=== PATIENT | male | born 1970 | race Caucasian/White ===

== ENCOUNTER 2019-04-10 15:54 | Inpatient (IN) | payer OTHER ==
[2019-04-10] MEDS ORDERED: Ketorolac 30 MG/ML SDV IVPUSH PRN (16:13)
[2019-04-10] MEDS: Sodium Chloride 0.9% 1,000 ML IV SCH (16:59)
[2019-04-10] MEDS: ceFAZolin 1 GM Vial IVPUSH SCH (17:26)
[2019-04-10] MEDS: metroNIDAZOLE/Normal Saline 500 MG in Premix Bag 1 BAG IV SCH (18:23)
--- NOTE | 2019-04-10 22:22 | PCM.SN ---
- Free Text/Narrative Note: Copy of 04/10/19 clinic note to be used as patient's admission H&P: Assessment / Plan Acute calculous cholecystitis Right upper quadrant abdominal pain Due to differential diagnosis favoring gallbladder/biliary tract pathology, labs and US obtained. US showed evidence of acute calculous cholecystitis. Only abnormalities on CBC/CMP/lipase/ESR include WBC 11.2 with 9.7 segs. Discussed withRebecca Horvath MD,and will admit the patient to [facility] for IVF (NS @ 125cc/hr), IV antibiotics (cefazolin 2g q8h and metronidazole 500mg q8h), and laparoscopic cholecystectomy. Low fat diet until midnight when starting NPO status anticipating surgery in AM. - COMPLETE BLOOD COUNT WITH DIFFERENTIAL; Future - COMPREHENSIVE METABOLIC PANEL; Future - ESR; Future - LIPASE; Future - US ABDOMEN LIMITED; Future Obesity with body mass index of 30.0-39.9 BMI 30.Diet and lifestyle modifications were discussed with the patient and a follow up plan is in place. Return following hospitalization. HPI / History / ROS Amberly Rosario is a 48yr male with a chief complaint ofAbdominal Pain (Middle). Awoke at 0300 with right-mid upper abdominal pain. Characterdescribed asdull numbing pain with some sharp stabs at time. Pain is constant, but has some episodes of worsening especially with movement. Difficulty taking deep breath due to pain in abdomen. Took ibuprofen 400mg and a nausea medication without any improvement. Decreased appetite, but did have breakfast of oats which made the pain worse. Denies similar pain in the past. Denies any change in diet or activity. About a month ago, had several days of diarrhea and fevers, which resolved. ROS Review of Systems Constitutional: Positive forappetite changeand fever(subjective). Negative foractivity change,chillsand fatigue. HENT: Negative forear discharge,ear pain,sore throatand trouble swallowing. Eyes: Negative forpain,rednessand visual disturbance. Respiratory: Negative forcough,chest tightnessand shortness of breath. Cardiovascular: Negative forchest pain,palpitationsand leg swelling. Gastrointestinal: Negative foranal bleeding,blood in stool,constipation, diarrhea,nauseaand vomiting. Endocrine: Negative forpolydipsia,polyphagiaand polyuria. Genitourinary: Negative fordifficulty urinating,dysuriaand hematuria. Musculoskeletal: Positive forback pain(occasional low back pain bilaterally associated with increased lifting). Negative forarthralgiasand joint swelling. Skin: Negative forcolor change,rashand wound. Allergic/Immunologic: Negative forenvironmental allergies,food allergiesand immunocompromised state. Neurological: Negative fordizziness,light-headednessand headaches. Psychiatric/Behavioral: Negative fordysphoric moodand sleep disturbance. The patientis not nervous/anxious. Histories w PastMedicalHistory w History reviewed. No pertinent past medical history. w PastSurgicalHistory w History reviewed. No pertinent surgical history. w FamilyHistory w Family History Problem Relation Age of Onset Cervical Cancer Mother No Known Problems Father No Known Problems Daughter No Known Problems Son No Known Problems Daughter w SocialHistory w Social History Socioeconomic History Marital status: Spouse name: Richa Number of children: 2 Years of education: Not on file Highest education level: Not on file Occupational History Not on file Social Needs Financial resource strain: Not on file Food insecurity: Worry: Not on file Inability: Not on file Transportation needs: Medical: Not on file Non-medical: Not on file Tobacco Use Smoking status: Former Smoker Packs/day: 0.75 Types: Cigarettes Smokeless tobacco: Never Used Substance and Sexual Activity Alcohol use: Not Currently Drug use: Never Sexual activity: Not on file Lifestyle Physical activity: Days per week: Not on file Minutes per session: Not on file Stress: Not on file Relationships Social connections: Talks on phone: Not on file Gets together: Not on file Attends temple service: Not on file Active member of club or organization: Not on file Attends meetings of clubs or organizations: Not on file Relationship status: Not on file Intimate partner violence: Fear of current or ex partner: Not on file Emotionally abused: Not on file Physically abused: Not on file Forced sexual activity: Not on file Other Topics Concern Not on file Social History Narrative Not on file w w w Patient Active Problem List l Diagnosis w w Obesity with body mass index of 30.0-39.9 Medicationsand Allergies w w w w w w Current Outpatient Medications on File Prior to Visit l Medication l Sig l Dispense l Refill w w B Complex Vitamins (VITAMIN B COMPLEX) capsule w Take 1 capsule by mouth 1 time per day w w w w vitamin C, ascorbic acid, 250 MG tablet w Take 250 mg by mouth 1 time per day w w w No current facility-administered medications on file prior to visit. No Known Allergies Physical / Results BP 132/82 Pulse 64 Temp 99 F (37.2 C) (Temporal) Resp 16 Ht 1.846 m (6' 0.68") Wt 102.3 kg (225 lb 9.6 oz) BMI 30.03 kg/m2|| Physical Exam Constitutional: He appearswell-developedand well-nourished.No distress. HENT: Head:Normocephalicand atraumatic. Right Ear:External earnormal. Left Ear: External earnormal. Nose:Nose normal. Mouth/Throat:Oropharynx is clear and moist. Nooropharyngeal exudate. Eyes:Conjunctivaeare normal. Right eye exhibits no discharge. Left eye exhibitsno discharge. Neck:Neck supple.No thyromegalypresent. Cardiovascular:Normal rate,regular rhythm,normal heart soundsand intact distal pulses. No murmurheard. Pulmonary/Chest:Effort normaland breath sounds normal. Norespiratory distress. He hasno wheezes. He hasno rales. Abdominal:Soft.Bowel sounds are normal. He exhibitsno distensionand no mass. There istenderness(RUQ with positive Hurtado sign). There isno rebound and no guarding. Musculoskeletal:Normal range of motion. He exhibits noedema. Lymphadenopathy: He has no cervical adenopathy. Neurological: He isalert. Skin: Skin iswarmand dry.No rashnoted. Psychiatric: He has anormal mood and affect.
[2019-04-11] MEDS: ceFAZolin 1 GM Vial IVPUSH SCH ×3 (00:57→17:40)
[2019-04-11] MEDS: Sodium Chloride 0.9% 1,000 ML IV SCH (00:59)
[2019-04-11] MEDS: metroNIDAZOLE/Normal Saline 500 MG in Premix Bag 1 BAG IV SCH ×2 (02:00→11:46)
[2019-04-11] MEDS ORDERED: Propofol 200 MG/20 ML SDV ONE (06:29)
[2019-04-11] MEDS ORDERED: Dexamethasone 4 MG/ML SDV ONE (06:29)
[2019-04-11] MEDS ORDERED: Midazolam 1 MG/ML 2 ML SDV ONE (06:29)
[2019-04-11] MEDS ORDERED: fentaNYL 250 MCG/5 ML SDV ONE (06:29)
[2019-04-11] MEDS ORDERED: ceFAZolin 1 GM Vial ONE ×3 (06:29→08:42)
[2019-04-11] MEDS ORDERED: Ketorolac 30 MG/ML SDV ONE (06:30)
[2019-04-11] MEDS ORDERED: Lactated Ringers 1,000 ML ONE ×2 (06:30→07:19)
[2019-04-11] MEDS ORDERED: Bupivacaine 0.5%/EPINEPHrine 1:200,000 30 ML SDV ONE ×2 (06:32→09:39)
[2019-04-11] MEDS ORDERED: Lactated Ringers 1,000 ML IV SCH (07:00)
[2019-04-11 07:51] LABS: ANION GAP 13.2 mmol/L (5-15); CHLORIDE,CL 108 mmol/L (98-115); SODIUM,NA 142 mmol/L (136-145)
[2019-04-11] MEDS ORDERED: EPINEPHrine 1:10,000 1 MG/10 ML Syringe ONE ×2 (08:04→09:00)
[2019-04-11] MEDS ORDERED: Propofol 200 MG/20 ML SDV IV ONE (08:23)
[2019-04-11] MEDS ORDERED: Succinylcholine 200 MG/10 ML MDV IV ONE (08:23)
[2019-04-11] MEDS ORDERED: Dexamethasone 4 MG/ML SDV IV ONE (08:23)
[2019-04-11] MEDS ORDERED: Rocuronium 50 MG/5 ML Vial IV ONE (08:23)
[2019-04-11] MEDS ORDERED: ceFAZolin 1 GM Vial IV ONE (08:23)
[2019-04-11] MEDS ORDERED: Midazolam 1 MG/ML 2 ML SDV IV ONE (08:23)
[2019-04-11] MEDS ORDERED: Glycopyrrolate 0.2 MG/ML 5 ML MDV IV ONE (08:23)
[2019-04-11] MEDS ORDERED: Ondansetron 4 MG/2 ML SDV IV ONE (08:23)
[2019-04-11] MEDS ORDERED: fentaNYL 250 MCG/5 ML SDV IV ONE (08:23)
[2019-04-11] MEDS ORDERED: Neostigmine Methylsulfate 10 MG/10 ML MDV IV ONE (08:23)
[2019-04-11] MEDS ORDERED: Ketorolac 30 MG/ML SDV IVPUSH ONE (08:23)
[2019-04-11] MEDS ORDERED: Sodium Chloride 0.9% 20 ML SDV ONE (08:42)
[2019-04-11] MEDS ORDERED: Bupivacaine 0.5%/EPINEPHrine 1:200,000 30 ML SDV INFILT ONE ×2 (08:42)
--- NOTE | 2019-04-11 10:53 | PCM.OPNOTE ---
- General Post-Op/Procedure Note Date of Surgery/Procedure: 04/11/19 Operative Procedure(s): Laparoscopic cholecystectomy and umbilical herniorrhaphy. Findings: Moderately acutely inflamed gallbladder with sludge and stone. Moderate umbilical hernia. Pre Op Diagnosis: Acute cholecystitis, chronic cholecystitis and cholelithiasis , umbilical hernia. Anesthesia Technique: General ET Tube Primary Surgeon: Ronald Horvath Condition: Good Free Text/Narrative:: INFORMED CONSENT: This patient is here today because of chronic cholecystitis and cholelithiasis. The operative procedure is laparoscopic cholecystectomy and possible umbilical herniorrhaphy. The operative procedure and risks were discussed including all possible complications including infection, pain, bleeding, bile duct injury, internal organ injury, conversion to open procedure , reoperation, PE, . Anesthetic complications were handled by [employer] [facility]. The patient understands well and wishes to proceed. OPERATION PERFORMED: Laparoscopic cholecystectomy and umbilical herniorrhaphy. PROCEDURE: The patient was kept in the supine position and a satisfactory general anesthetic was administered via endotracheal tube. The abdomen was thoroughly prepped and draped in the usual fashion. The supraumbilical fold was infiltrated with 1 mL of Marcaine 0.5% and a curvilinear incision was made. The incision was deepened through the subcutaneous tissue until we came down upon the fascial layer. We then held the fascial layer with two Eliceo clamps and then opened the fascia, the peritoneum and enter the peritoneal cavity directly under vision. This was followed by a 5/12.5 trocar and a camera. Inspection revealed an acutely and chronically inflamed gallbladder with some omental adhesions. The omental pad was quite thick. The rest of the abdominal contents were normal to visualization. Two 5 mm trocars were placed in the right hypochondriac region, one in the right midclavicular and the second on the anterior clavicular lines and a third 5 mm trocar was inserted in the subxiphoid position under direct vision. The patient was then kept in the reverse Trendelenburg position with a slight tilt to the left side. The two ratchets were placed one on the fundus and one at the neck of the gallbladder. Dissection was begun at the neck of the gallbladder and the fat in this area was quite immense. We carefully dissected out the cystic artery and cystic duct separately and encircled both structures at approximately 1 to 1-1/2 cm. We ligated each structure separately using endo clips. When ligating the cystic duct we made sure not to encroach upon the common duct in any way. The critical view of Pierce was clearly seen. We then used a hook cautery and gently dissected the gallbladder off its bed. The base gallbladder fossa was gently cauterized for additional hemostasis. The gallbladder wall was quite thick and moderately adherent to the hepatic fossa. The gallbladder was retrieved through the umbilical port. The ida hepatis was thoroughly irrigated with normal saline, most of which was aspirated out. The abdomen was then slowly deflated and prior to removal of the last trocar we completely deflated the abdomen. The trocar sites were washed with Betadine solution and the umbilical hernia contents which are mostly fatty removed and the fascial layer was closed with 0 Polysorb, 2-0 Polysorb was used for sabcutaenous tissue and the skin was closed using stainless steel clips. Subcutaneous 2-0 Polysorb was placed at the other trocar sites and the skin was closed with stainless steel clips. We then instilled approximately 20 mL of Marcaine 0.5% with epinephrine between the four sites. We irrigated the sites with Betadine solution. Sterile pressure dressings were applied. The patient tolerated the procedure well. There were no operative complications. Sponge, needle, and instrument count were correct. Blood loss was negligible. He was transferred to the recovery room in excellent condition. Intake & Output
[2019-04-11] MEDS ORDERED: Acetaminophen/HYDROcodone 325-10 MG Tab PO PRN (12:37)
== END 2019-04-11 17:30 | disposition home or self-care (01) | DRG 419 ==
LOC: KA.MS 15:54
PROVIDERS: ADMIT Family Medicine; ATTEND Family Medicine
PROC: 0FT44ZZ Resection of Gallbladder, Percutaneous Endoscopic Approach (ICD-10-PCS; principal; 2019-04-11)
PROC: 0WQF4ZZ Repair Abdominal Wall, Percutaneous Endoscopic Approach (ICD-10-PCS; principal; 2019-04-11)
DX: K80.12 Calculus of gallbladder with acute and chronic cholecystitis without obstruction (principal); E66.9 Obesity, unspecified; Z68.30 Body mass index [BMI] 30.0-30.9, adult; Z87.891 Personal history of nicotine dependence; K42.9 Umbilical hernia without obstruction or gangrene
CPT/HCPCS: 00790; 36415; 80053; 85025; A4217; J0171; J0330; J0690; J1100; J1885; J2250; J2405; J2704; J2710; J3010; J3490; J7030; J7120